=== PATIENT | male | born 1960 | race Caucasian/White ===

== ENCOUNTER → 2017-10-07 | Outpatient (CLI) | payer OTHER ==
[~2017-10-07] MED LIST: ASPI325 PO; ATOR80 PO; METF500 PO; METO25 PO; NICO21TP TOP; NITR.4SL SL; Prinivil5 MG PO
[2017-10-07 16:02] LABS: BASOPHILS ABSOLUTE AUTO 0.04 K/mm3 (0.00-0.23); BASOPHILS PERCENT AUTO 0 % (0-2); EOSINOPHILS ABSOLUTE AUTO 0.14 K/mm3 (0.00-0.68); EOSINOPHILS PERCENT AUTO 1 % (0-6); Hematocrit 42.9 % (37.0-53.0); Hemoglobin 15.6 g/dL (13.5-17.5); IMMATURE GRAN ABSOLUTE AUTO 0.03 K/mm3 (0.00-0.10); IMMATURE GRAN PERCENT AUTO 0 % (0-1); LYMPHOCYTES ABSOLUTE AUTO 1.42 K/mm3 (0.84-5.20); LYMPHOCYTES PERCENT AUTO 13 % (21-46); MONOCYTES ABSOLUTE AUTO 0.56 K/mm3 (0.16-1.47); MONOCYTES PERCENT AUTO 5 % (4-13); Mean Corpuscular HGB 33.4 pg (26.0-34.0); Mean Corpuscular HGB Conc 36.4 g/dL (31.5-36.5); Mean Corpuscular Volume 92 fL (80-100); Mean Platelet Volume 10.8 fL (9.1-12.4); NEUTROPHILS ABSOLUTE AUTO 8.74 K/mm3 (1.96-9.15); NEUTROPHILS PERCENT AUTO 80 % (41-73); Platelet Count 246 K/mm3 (150-400); RDW Coefficient Variation 11.8 % (11.7-14.2); RDW Standard Deviation 39.5 fL (35.1-46.3); Red Blood Cell Count 4.67 M/mm3 (4.30-5.90); White Blood Cell Count 10.93 K/mm3 (4.00-11.30)
[2017-10-07 16:24] LABS: Alanine Aminotransfer (ALT/SGP 27 U/L (12-78); Albumin, Blood 4.1 g/dL (3.4-5.0); Albumin/Globulin Ratio 1.1 (0.8-1.8); Alk Phos 120 U/L (50-136); Anion Gap 9 mmol/L (6-16); Aspartate Aminotrans (AST/SGOT 14 U/L (12-37); Bilirubin, Total 0.5 mg/dL (0.1-1.0); Blood Urea Nitrogen 14 mg/dL (8-24); Bun/Creatinine Ratio 23.9 (12.0-20.0); CHOL/HDL RATIO 5.7; CO2, Blood 24 mmol/L (21-32); Calcium, Blood 8.8 mg/dL (8.5-10.1); Chloride, Blood 100 mmol/L (98-108); Cholesterol 266 mg/dL (50-200); Creatinine, Blood 0.59 mg/dL (0.60-1.20); Globulin, Blood 3.9 g/dL (2.2-4.0); Glomerular Filtration Rate >60 (60-); Glucose, Blood 289 mg/dL (70-99); HDL Cholesterol 47 mg/dL (>39); LDL/HDL RATIO 3.6; Low Density Lipoprotein Chol 169 mg/dL (0-110); Potassium, Blood 3.9 mmol/L (3.5-5.5); Sodium, Blood 133 mmol/L (136-145); Triglycerides 249 mg/dL (30-160); Very Low Density Lipoprot Chol 49 mg/dL (6-32)
== END ==
LOC: LAB SHORT 15:51 → LAB 15:51
PROVIDERS: Physician Assistant
DX: Z12.5 Encounter for screening for malignant neoplasm of prostate (principal); E11.9 Type 2 diabetes mellitus without complications
CPT/HCPCS: 80053; 80061; 83036; 85025; G0103

== ENCOUNTER → 2020-04-16 | Outpatient (CLI) | payer BC ==
[2020-04-16 15:41] LABS: Alanine Aminotransfer (ALT/SGP 27 U/L (12-78); Albumin, Blood 4.1 g/dL (3.4-5.0); Albumin/Globulin Ratio 1.2 (0.8-1.8); Alk Phos 78 U/L (50-136); Anion Gap 7 mmol/L (6-16); Aspartate Aminotrans (AST/SGOT 20 U/L (12-37); Bilirubin, Total 0.4 mg/dL (0.1-1.0); Blood Urea Nitrogen 11 mg/dL (8-24); Bun/Creatinine Ratio 12.4 (12.0-20.0); CO2, Blood 27 mmol/L (21-32); Calcium, Blood 9.5 mg/dL (8.5-10.1); Chloride, Blood 99 mmol/L (98-108); Creatinine, Blood 0.89 mg/dL (0.60-1.20); Globulin, Blood 3.5 g/dL (2.2-4.0); Glomerular Filtration Rate >60 (60-); Glucose, Blood 154 mg/dL (70-99); Potassium, Blood 3.9 mmol/L (3.5-5.5); Sodium, Blood 133 mmol/L (136-145); Total Protein, Blood 7.6 g/dL (6.4-8.2)
== END ==
LOC: LAB SHORT 13:25 → LAB FUT 03-31 10:55
PROVIDERS: Nurse Practitioner Family
DX: E11.9 Type 2 diabetes mellitus without complications (principal)
CPT/HCPCS: 36415; 80053; 82043

== ENCOUNTER 2023-05-27 13:11 | Observation (INO) | payer OTHER ==
[~2023-05-27] VITALS: Ht 172.7 cm; Wt 64.5 kg
[2023-05-27 13:43] LABS: BASOPHILS ABSOLUTE AUTO 0.06 K/mm3 (0.00-0.23); BASOPHILS PERCENT AUTO 1 % (0-2); EOSINOPHILS ABSOLUTE AUTO 0.19 K/mm3 (0.00-0.68); EOSINOPHILS PERCENT AUTO 2 % (0-6); Hematocrit 44.1 % (37.0-53.0); Hemoglobin 15.7 g/dL (13.5-17.5); IMMATURE GRAN ABSOLUTE AUTO 0.05 K/mm3 (0.00-0.10); IMMATURE GRAN PERCENT AUTO 0 % (0-1); LYMPHOCYTES ABSOLUTE AUTO 2.46 K/mm3 (0.84-5.20); LYMPHOCYTES PERCENT AUTO 21 % (21-46); MONOCYTES ABSOLUTE AUTO 0.78 K/mm3 (0.16-1.47); MONOCYTES PERCENT AUTO 7 % (4-13); Mean Corpuscular HGB 33.3 pg (26.0-34.0); Mean Corpuscular HGB Conc 35.6 g/dL (31.5-36.5); Mean Corpuscular Volume 93 fL (80-100); NEUTROPHILS ABSOLUTE AUTO 8.37 K/mm3 (1.96-9.15); NEUTROPHILS PERCENT AUTO 70 % (41-73); Platelet Count 268 K/mm3 (150-400); RDW Coefficient Variation 11.6 % (11.7-14.2); RDW Standard Deviation 39.5 fL (35.1-46.3); Red Blood Cell Count 4.72 M/mm3 (4.30-5.90); White Blood Cell Count 11.91 K/mm3 (4.00-11.30)
[2023-05-27 14:02] LABS: Albumin, Blood 4.4 g/dL (3.4-5.0); Albumin/Globulin Ratio 1.1 (0.8-1.8); Bilirubin, Total 0.4 mg/dL (0.1-1.0); Bun/Creatinine Ratio 19.6 (12.0-20.0); Calcium, Blood 9.7 mg/dL (8.5-10.1); Creatinine, Blood 0.66 mg/dL (0.60-1.20); Potassium, Blood 3.8 mmol/L (3.5-5.5); Total Protein, Blood 8.4 g/dL (6.4-8.2)
[2023-05-27 15:25] LABS: Ethanol (Alcohol), Blood, Med <3 mg/dL
[2023-05-27] MEDS ORDERED: CYCL10 PO (18:49)
[2023-05-27] MEDS ORDERED: Prednisone10 MG PO (18:50)
[2023-05-27 20:38] VITALS: BP 153/91
--- NOTE | 2023-05-27 22:09 | NUR ---
ADMIT NOTE 62 YR OLD MALE ADMITTED TO THE FLOOR FROM THE ED WITH DX OF CVA. ED RN REPORTED PT C/O RIGHT SIDE NUMBNESS AND TINGLING. NO NOTED FACIAL DROOP. MRI DONE AND ED RN REPORTED LEFT CVA - "LEFT THALMUS INFARCT". ALERT AND ORIENTED. HX DM, CABG AND CAD. BP ELEVATED, OTHERWISE VSS. MED FOR HTN ADMIN - SEE MAR FOR DETAILS. ORIENTED TO USE OF CALL LIGHT. CALL LIGHT IN REACH. WILL CONT TO MONITOR/ASSESS
[2023-05-28 04:23] VITALS: BP 119/81
--- NOTE | 2023-05-28 05:04 | NUR ---
[employer] COMPUTER CONSULTANT SUMMARY VSS. WAS ADMITTED EARLIER IN THE SHIFT WITH DX OF CVA. RIGHT SIDE NUMBNESS, TINGLING AND PUPILS ROUND BUT NOT EQUAL. VERBAL RESPONSE APPROPRIATE. NO NOTED FACIAL DROOP. 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 MED TELE SINUS. VOICED HAD PAIN IN LEFT CALF, RECEIVED TYLENOL AND PAIN WAS RELIEVED. HAS BEEN RESTING QUIETLY WITH AT BEDSIDE FOR SUPPORT. VOICED LOSS OF FEELING OF RIGHT SIDE GETTING BETTER, FEELING STARTING TO RETURN. CALL LIGHT IN REACH. WILL CONTINUE TO MONITOR
[2023-05-28 05:58] LABS: CHOL/HDL RATIO 5.9; Cholesterol 246 mg/dL (50-200); HDL Cholesterol 42 mg/dL (>39); LDL/HDL RATIO Unable to Calculate; Low Density Lipoprotein Chol Unable to Calculate mg/dL (0-110); Triglycerides 445 mg/dL (30-160); Very Low Density Lipoprot Chol Unable to Calculate mg/dL (6-32)
[2023-05-28 07:19] VITALS: BP 112/75
[2023-05-28] MEDS ORDERED: ACET325 PO (16:03)
[2023-05-28] MEDS ORDERED: ATOR40TA PO (16:03)
[2023-05-28] MEDS ORDERED: ASPI81CH PO (16:03)
[2023-05-28] MEDS ORDERED: METF500 PO (16:04)
[2023-05-28] MEDS ORDERED: CLOP75 PO (16:04)
[2023-05-28] MEDS ORDERED: LOSA25 PO (16:04)
--- NOTE | 2023-05-28 16:25 | NUR ---
DISCHARGE SUMMARY PATIENT IS ALERT AND ORIENTED. PATIENT HAS HAD NO ACUTE EVENTS THIS SHIFT. PATIENT HAS BEEN EDUCATED ON DISCHARGE INFORMATION. [facility] IS TRANSPORTING PATIENT HOME.
[2023-05-30 21:11] LABS: HEMOGLOBIN A1C 8.3 % (4.8-5.6)
== END 2023-05-28 17:19 | disposition home or self-care (01) ==
LOC: ER 13:11 → MEDS 13:12
PROVIDERS: Emergency Medicine; ADMIT Hospitalist
DX: I63.9 Cerebral infarction, unspecified (principal); G81.91 Hemiplegia, unspecified affecting right dominant side; I10 Essential (primary) hypertension; E11.65 Type 2 diabetes mellitus with hyperglycemia; I25.10 Atherosclerotic heart disease of native coronary artery without angina pectoris; F17.210 Nicotine dependence, cigarettes, uncomplicated; Z95.1 Presence of aortocoronary bypass graft; Z66 Do not resuscitate; Z79.84 Long term (current) use of oral hypoglycemic drugs
CPT/HCPCS: 36415; 70450; 70551; 80053; 80061; 82947; 83036; 83735; 85025; 93005; 93010; 93306; 93880; 96372; 97112; 97116; 97162; 97530; 99285-25; A9270; G0378; J1650; J1815

== ENCOUNTER 2023-07-07 17:38 | Emergency (ER) | payer OTHER ==
[~2023-07-07] VITALS: Ht 167.6 cm; Wt 65.8 kg
[~2023-07-07 17:38] MED LIST changes: +ACET325 PO; +ASPI81CH PO; +ATOR40TA PO; +CLOP75 PO; +CYCL10 PO; +LOSA25 PO; +Prednisone10 MG PO
[2023-07-07 18:15] LABS: BASOPHILS ABSOLUTE AUTO 0.05 K/mm3 (0.00-0.23); BASOPHILS PERCENT AUTO 1 % (0-2); EOSINOPHILS ABSOLUTE AUTO 0.25 K/mm3 (0.00-0.68); EOSINOPHILS PERCENT AUTO 3 % (0-6); Hematocrit 42.1 % (37.0-53.0); Hemoglobin 15.1 g/dL (13.5-17.5); IMMATURE GRAN ABSOLUTE AUTO 0.02 K/mm3 (0.00-0.10); IMMATURE GRAN PERCENT AUTO 0 % (0-1); LYMPHOCYTES ABSOLUTE AUTO 1.78 K/mm3 (0.84-5.20); LYMPHOCYTES PERCENT AUTO 19 % (21-46); MONOCYTES ABSOLUTE AUTO 0.81 K/mm3 (0.16-1.47); MONOCYTES PERCENT AUTO 9 % (4-13); Mean Corpuscular HGB Conc 35.9 g/dL (31.5-36.5); Mean Corpuscular Volume 92 fL (80-100); Mean Platelet Volume 10.1 fL (9.1-12.4); NEUTROPHILS ABSOLUTE AUTO 6.51 K/mm3 (1.96-9.15); NEUTROPHILS PERCENT AUTO 69 % (41-73); Platelet Count 292 K/mm3 (150-400); RDW Coefficient Variation 11.9 % (11.7-14.2); RDW Standard Deviation 40.5 fL (35.1-46.3); Red Blood Cell Count 4.57 M/mm3 (4.30-5.90); White Blood Cell Count 9.42 K/mm3 (4.00-11.30)
[2023-07-07 18:46] LABS: C-REACTIVE PROTEIN, EXT RANGE 1.3 mg/dL (0.000-0.300)
[2023-07-07 18:49] LABS: Albumin, Blood 4.1 g/dL (3.4-5.0); Bilirubin, Total 0.3 mg/dL (0.1-1.0); Bun/Creatinine Ratio 21.8 (12.0-20.0); Creatinine, Blood 0.69 mg/dL (0.60-1.20); Globulin, Blood 4.1 g/dL (2.2-4.0); Potassium, Blood 4.5 mmol/L (3.5-5.5); Total Protein, Blood 8.2 g/dL (6.4-8.2)
[2023-07-07 20:52] VITALS: BP 146/96
== END 2023-07-07 20:55 | disposition home or self-care (01) ==
LOC: ER 17:38
PROVIDERS: Emergency Medicine
DX: E11.51 Type 2 diabetes mellitus with diabetic peripheral angiopathy without gangrene (principal); F17.200 Nicotine dependence, unspecified, uncomplicated; I10 Essential (primary) hypertension; E78.5 Hyperlipidemia, unspecified; Z79.899 Other long term (current) drug therapy; Z79.02 Long term (current) use of antithrombotics/antiplatelets; Z79.82 Long term (current) use of aspirin; Z79.84 Long term (current) use of oral hypoglycemic drugs
CPT/HCPCS: 80053; 85025; 86140; 93926; 99283-25

== ENCOUNTER 2023-07-24 08:56 | Day surgery (SDC) | payer OTHER ==
[2023-07-24] VITALS (9 sets, daily range): BP systolic 127–150; BP diastolic 79–88
[~2023-07-24] VITALS: Ht 172.7 cm; Wt 64.4 kg
[~2023-07-24 08:56] MED LIST changes: +GLIP5 PO; +Norco 5-325 Ta1 EACH
--- NOTE | 2023-07-24 09:27 | NUR ---
PT'S IN ROOM. CALL LIGHT IN REACH.
--- NOTE | 2023-07-24 14:43 | NUR ---
LEFT DP AND R FEMORAL GROIN SITES SOFT WITH NO HEMATOMA, NO BLEEDING AND INTACT DRESSINGS. FULL PROCEDURE REPORT PROVIDED ORAL COFFEY TO ASSUME CARE OF PT IN RECOVERY ROOM. CALL LIGHT IN REACH.
--- NOTE | 2023-07-24 15:00 | NUR ---
ASSUMED CARE OF PT AT THIS TIME. VSS REMAIN STABLE, PT ALERT AND ORIENTED, PT SPOUSE AT BEDSIDE. PT. RIGHT GROIN SITE REMAINS UNCHANGED FROM PREVIOUS NURSES ASSESSMENT, NO OOZING, NO HEMATOMA. PT LEFT PEDAL SITE REMAINS UNCHANGED WELL NO OOZING OR HEMATOMA. PT LEFT FOOT WARM TO TOUCH AND RED IN COLOR. PT REMAINS LAYING SUPINE IN BED. CALL LIGHT IN REACH.
--- NOTE | 2023-07-24 15:38 | NUR ---
PT ASSISTED TO SIT UP IN BED, BOTH FEMORAL AND PEDAL SITE REMAINS UNCHANGED FROM PREVIOUS ASSESSMENT. PT. ASSISTED TO DANGLE AT BEDSIDE AND STAND TO VOID. PT VOIDED 300CC OF URINE. REPORTS TENDERNESS TO BOTTOM OF FOOT. PT ASSISTED BACK INTO BED, AND GROIN SITE AND PEDAL SITE ASSESSED AND REMAIN UNCHANGED AFTER ACTIVITY.
--- NOTE | 2023-07-24 16:11 | NUR ---
DISCHARGE INSTRUCTIONS REVIEWED WITH PT. PT REQUESTING PAIN MEDICATION PRIOR TO DEPARTURE FOR PAIN TO FOOT OF 01/01. NORCO ORDERED PER DR. LIPSCOMB. PT. ALSO TO BE STARTED ON [place]. CALLED INTO [facility] PER PT. REQUEST. NO FUTHER QUESTIONS TO DISCHARGE INSTRUCTIONS AT THIS TIME. PT ASSSITING PT TO GET DRESSED. GROIN AND PEDAL SITE REMAIN UNCHANGED. VSS
[2023-07-24] MEDS ORDERED: CLOP75 PO (16:13)
--- NOTE | 2023-07-24 16:34 | NUR ---
PT DISCHARGED TO HOME VIA WHEELCHAIR. PT TO DRIVE PT HOME. NO FURTHER QUESTIONS REGARDING DISCHARGE UPON DEPARTURE, SITES REMAIN WNL, UNCHANGED FROM PREVIOUS ASSESSMENT PRIOR TO DEPARTURE.
== END 2023-07-24 16:30 | disposition home or self-care (01) ==
LOC: MHTC 08:56
DX: I70.223 Atherosclerosis of native arteries of extremities with rest pain, bilateral legs (principal); E11.9 Type 2 diabetes mellitus without complications; E78.5 Hyperlipidemia, unspecified; I10 Essential (primary) hypertension; Z95.1 Presence of aortocoronary bypass graft; F17.210 Nicotine dependence, cigarettes, uncomplicated
CPT/HCPCS: 76937; 82947; 85347; 99152; 99153; A9270; C1714; C1725; C1760; C1769; C1874; C1884; C1887; C1894; C2623; J1644; J2250; J3010; J7030; J7050; Q9967

== ENCOUNTER 2023-08-12 17:52 | Emergency (ER) | payer OTHER ==
[~2023-08-12] VITALS: Ht 175.3 cm; Wt 63.5 kg
[~2023-08-12 17:52] MED LIST changes: +DOCU100 PO
[2023-08-12 19:08] LABS: BASOPHILS ABSOLUTE AUTO 0.07 K/mm3 (0.00-0.23); BASOPHILS PERCENT AUTO 1 % (0-2); EOSINOPHILS ABSOLUTE AUTO 0.43 K/mm3 (0.00-0.68); EOSINOPHILS PERCENT AUTO 3 % (0-6); Hematocrit 35.4 % (37.0-53.0); Hemoglobin 12.5 g/dL (13.5-17.5); IMMATURE GRAN ABSOLUTE AUTO 0.04 K/mm3 (0.00-0.10); IMMATURE GRAN PERCENT AUTO 0 % (0-1); LYMPHOCYTES ABSOLUTE AUTO 1.52 K/mm3 (0.84-5.20); LYMPHOCYTES PERCENT AUTO 12 % (21-46); MONOCYTES ABSOLUTE AUTO 1.17 K/mm3 (0.16-1.47); MONOCYTES PERCENT AUTO 9 % (4-13); Mean Corpuscular HGB 33.4 pg (26.0-34.0); Mean Corpuscular HGB Conc 35.3 g/dL (31.5-36.5); Mean Corpuscular Volume 95 fL (80-100); Mean Platelet Volume 9.9 fL (9.1-12.4); NEUTROPHILS ABSOLUTE AUTO 9.96 K/mm3 (1.96-9.15); NEUTROPHILS PERCENT AUTO 76 % (41-73); Platelet Count 336 K/mm3 (150-400); Red Blood Cell Count 3.74 M/mm3 (4.30-5.90); White Blood Cell Count 13.19 K/mm3 (4.00-11.30)
[2023-08-12 19:16] LABS: Albumin, Blood 3.8 g/dL (3.4-5.0); Albumin/Globulin Ratio 0.9 (0.8-1.8); Bilirubin, Total 0.5 mg/dL (0.1-1.0); Bun/Creatinine Ratio 22.3 (12.0-20.0); Calcium, Blood 9.4 mg/dL (8.5-10.1); Creatinine, Blood 0.63 mg/dL (0.60-1.20); Globulin, Blood 4.4 g/dL (2.2-4.0); Potassium, Blood 4.4 mmol/L (3.5-5.5); Total Protein, Blood 8.2 g/dL (6.4-8.2)
[2023-08-12] MEDS ORDERED: NS 1,000 ML IV SCH (19:50)
[2023-08-12 22:00] VITALS: BP 164/93
== END 2023-08-12 22:27 | disposition home or self-care (01) ==
LOC: ER 17:52
PROVIDERS: Physician Assistant
DX: I95.1 Orthostatic hypotension (principal); F17.200 Nicotine dependence, unspecified, uncomplicated; D72.829 Elevated white blood cell count, unspecified; Z79.82 Long term (current) use of aspirin; Z79.899 Other long term (current) drug therapy; Z79.84 Long term (current) use of oral hypoglycemic drugs; Z79.02 Long term (current) use of antithrombotics/antiplatelets
CPT/HCPCS: 80053; 83880; 84484; 85025; 93005; 93010; 96360; 96361; 99285-25; J7030

== ENCOUNTER → 2023-10-18 | Outpatient (CLI) | payer OTHER | END | disposition home or self-care (01) | LOC: LAB 11:30 → LAB SHORT 11:30 | DX: Z51.81 Encounter for therapeutic drug level monitoring (principal); Z79.899 Other long term (current) drug therapy ==

== ENCOUNTER 2023-12-03 21:52 | Observation (INO) | payer OTHER ==
[~2023-12-03] VITALS: Ht 170.2 cm; Wt 65.3 kg
[~2023-12-03 21:52] MED LIST changes: +Avapro300 MG PO; +GABA100 PO; +GLIM4 PO; +HYDCHL25 PO; +HYDROCODONE-AC1 EA19 PO; -LOSA25 PO; +LOSA50 PO; +METO25ER PO; +NEURONTIN300 MG PO; -Norco 5-325 Ta1 EACH; +Norco 5-325 Ta1 EACH PO; +OMEP20ER PO; +OXYC5 PO; +PANT40 PO; +VENL75ER PO; +XARELTO20 M1 PO
[2023-12-03 23:11] LABS: Source, Urine Clean Catch
[2023-12-03 23:15] LABS: BASOPHILS ABSOLUTE AUTO 0.05 K/mm3 (0.00-0.23); BASOPHILS PERCENT AUTO 1 % (0-2); EOSINOPHILS ABSOLUTE AUTO 0.33 K/mm3 (0.00-0.68); EOSINOPHILS PERCENT AUTO 5 % (0-6); Hematocrit 38.8 % (37.0-53.0); Hemoglobin 13.8 g/dL (13.5-17.5); IMMATURE GRAN ABSOLUTE AUTO 0.02 K/mm3 (0.00-0.10); IMMATURE GRAN PERCENT AUTO 0 % (0-1); LYMPHOCYTES ABSOLUTE AUTO 2.49 K/mm3 (0.84-5.20); LYMPHOCYTES PERCENT AUTO 37 % (21-46); MONOCYTES PERCENT AUTO 10 % (4-13); Mean Corpuscular HGB 32.7 pg (26.0-34.0); Mean Corpuscular HGB Conc 35.6 g/dL (31.5-36.5); Mean Corpuscular Volume 92 fL (80-100); Mean Platelet Volume 10.1 fL (9.1-12.4); NEUTROPHILS ABSOLUTE AUTO 3.18 K/mm3 (1.96-9.15); NEUTROPHILS PERCENT AUTO 47 % (41-73); Platelet Count 296 K/mm3 (150-400); RDW Coefficient Variation 11.9 % (11.7-14.2); Red Blood Cell Count 4.22 M/mm3 (4.30-5.90); White Blood Cell Count 6.77 K/mm3 (4.00-11.30)
[2023-12-03 23:17] LABS: Bilirubin, Urine Neg (Neg); Blood, Urine 1+ (Neg); Glucose Qualitative, Urine 1+ (Neg); Ketones, Urine Neg (Neg); Leukocyte Esterase, Urine Neg (Neg); Nitrite, Urine Neg (Neg); Protein, Urine Neg (Neg); Urobilinogen, Urine NORM (Normal)
[2023-12-03 23:34] LABS: Ethanol (Alcohol), Blood, Med 132 mg/dL; Salicylate 4.5 mg/dL (2.8-20.0); Thyroxine (T4) 10.3 ug/dL (4.5-12.1)
[2023-12-03 23:40] LABS: U Amphetamine Screen Not Detected; U Barbituate Screen Not Detected; U Benzodiazapine Screen Not Detected; U Buprenorphine Screen Not Detected; U Cannabinoids Screen Not Detected; U Cocaine Screen Not Detected; U Methadone Screen Not Detected; U Methamphetamine Screen Not Detected; U Opiates Screen Not Detected; U Oxycodone Screen Not Detected; U Phencyclidine Screen Not Detected
[2023-12-03 23:41] LABS: Alanine Aminotransfer (ALT/SGP 29 U/L (12-78); Albumin, Blood 4.4 g/dL (3.4-5.0); Alk Phos 105 U/L (50-136); Anion Gap 11 mmol/L (3-11); Aspartate Aminotrans (AST/SGOT 17 U/L (12-37); Bilirubin, Total 0.2 mg/dL (0.1-1.0); Blood Urea Nitrogen 6 mg/dL (8-24); Bun/Creatinine Ratio 9.6 (12.0-20.0); CO2, Blood 24 mmol/L (21-32); Calcium, Blood 9.7 mg/dL (8.5-10.1); Chloride, Blood 107 mmol/L (98-108); Creatinine, Blood 0.62 mg/dL (0.60-1.20); Globulin, Blood 4.2 g/dL (2.2-4.0); Glomerular Filtration Rate 108 (60-); Glucose, Blood 97 mg/dL (70-99); Potassium, Blood 3.2 mmol/L (3.5-5.5); Sodium, Blood 139 mmol/L (136-145); Total Protein, Blood 8.6 g/dL (6.4-8.2)
[2023-12-03 23:41] LABS: Appearance, Urine Clear (Clear); Color, Urine Pale Yellow (P-Yellow)
[2023-12-03 23:42] LABS: Bacteria Not Seen /hpf; Red Blood Cells, Urine 0-2 /hpf (0-2); Squamous Epithelial Cells Not Seen /hpf (Few); White Blood Cells, Urine Not Seen /hpf (0-5)
[2023-12-03 23:47] LABS: Acetaminophen, Random <2.0 ug/mL (10.0-30.0)
[2023-12-04] MEDS ORDERED: HYDROcodone 5-APAP 325 TAB PO ONE (00:45)
[2023-12-04 19:30] VITALS: BP 147/78
[2023-12-05] MEDS ORDERED: buPROPion HCL 150 MG TAB.SR.12H PO SCH (09:00)
== END 2023-12-04 20:48 | disposition other institution (70) ==
LOC: ER 21:52 → EOR 21:53
PROVIDERS: ADMIT Emergency Medicine
DX: F32.2 Major depressive disorder, single episode, severe without psychotic features (principal); F10.129 Alcohol abuse with intoxication, unspecified; E11.51 Type 2 diabetes mellitus with diabetic peripheral angiopathy without gangrene; F17.200 Nicotine dependence, unspecified, uncomplicated; Z95.1 Presence of aortocoronary bypass graft; Z79.84 Long term (current) use of oral hypoglycemic drugs; Z79.82 Long term (current) use of aspirin; Z79.01 Long term (current) use of anticoagulants; Z79.899 Other long term (current) drug therapy
CPT/HCPCS: 80053; 81001; 84436; 84443; 85025; 86592; 99285-25; A9270; G0378; G0480

== ENCOUNTER 2023-12-04 15:46 | Inpatient (IN) | payer OTHER ==
[2023-12-04] MEDS ORDERED: Haloperidol 5 MG Tab PO PRN ×3 (20:40→20:45)
[2023-12-04] MEDS ORDERED: TraZODone HCl 50 MG Tab PO PRN (20:40)
[2023-12-04] MEDS ORDERED: Haloperidol 1 MG Tab PO PRN (20:45)
[2023-12-04] MEDS ORDERED: LORazepam 2 MG Tab PO PRN ×5 (20:45→20:55)
[2023-12-04] MEDS ORDERED: OLANZapine ODT 10 MG Tab MM PRN (20:50)
[2023-12-04] MEDS ORDERED: QUEtiapine Fumarate 25 MG Tab PO PRN ×2 (20:50→20:55)
[2023-12-04] MEDS ORDERED: OLANZapine ODT 5 MG Tab MM PRN (20:50)
[2023-12-04] MEDS ORDERED: Melatonin 3 MG Tab PO PRN (20:50)
[2023-12-04] MEDS ORDERED: LORazepam 0.5 MG Tab PO PRN ×2 (20:50)
[2023-12-04] MEDS ORDERED: DiphenhydrAMINE HCl 50 MG Cap PO PRN ×3 (20:55)
[2023-12-04] MEDS ORDERED: OLANZapine 10 MG Vial IM PRN (20:55)
[2023-12-04] MEDS ORDERED: RisperiDONE 0.25 MG Tab PO PRN (20:55)
[2023-12-04] MEDS ORDERED: Gabapentin 300 MG Cap PO SCH (21:00)
[2023-12-04] MEDS ORDERED: RisperiDONE 1 MG Tab PO PRN (21:00)
[2023-12-04] MEDS ORDERED: Losartan Potassium 50 MG Tab PO SCH (21:00)
[2023-12-04] MEDS ORDERED: Aluminum Hydroxide 320MG/5ML 473 ML PO PRN (21:00)
--- NOTE | 2023-12-05 05:07 | NUR ---
SHIFT SUMMARY Patient is 63YO male brought to the ED by PD for SI, admitted to the [facility] at about 2100. Pt presents as depressed and sad with a flattened affect. He is A&O, calm, cooperative. At the time of admission patient denied SI, HI, and AVH. Pt rates his depression as 2/10W, but appears to be more depressed that his report. He is somewhat disheveled in appearance. Pt reports suffering from anhedonia. He has lost about 21 lbs in the cast 2-3 months and shows temporal wasting. Pt endorsed SI while in the ER, but currently denies. Pt has encountered several stressors over the last year including the of his son and the necessity to move into a trailer in a rented space. He is currently unemployed but his works. He denies financial and food insecurity. Patient reports current lower leg pain 8/10w. He tends to walk gingerly and painfully. After admission patient was shown to his room. He has appeared to have slept most of the time since admission.
[2023-12-05] MEDS ORDERED: GlipiZIDE 5 MG TabCR PO SCH (08:00)
[2023-12-05] MEDS ORDERED: MetFORMIN HCl 500 mg PO SCH (08:00)
[2023-12-05] MEDS ORDERED: Thiamine HCl 100 MG Tab PO SCH (09:00)
[2023-12-05] MEDS ORDERED: buPROPion HCL 150 MG TAB.SR.12H PO SCH (09:00)
[2023-12-05] MEDS ORDERED: Multivitamins 1 Tab PO SCH (09:00)
[2023-12-05] MEDS ORDERED: HydroCHLOROthiazide 25 mg Tab PO SCH (09:00)
[2023-12-05] MEDS ORDERED: Clopidogrel Bisulfate 75 MG Tab PO SCH (09:00)
[2023-12-05] MEDS ORDERED: Metoprolol Succinate 25 MG TABCR PO SCH (09:00)
[2023-12-05] MEDS ORDERED: Docusate Sodium 100 MG Cap PO SCH (09:00)
[2023-12-05] MEDS ORDERED: Aspirin 81 MG Chew PO SCH (09:00)
[2023-12-05] MEDS ORDERED: Folic Acid 1 MG TAB PO SCH (09:00)
[2023-12-05] MEDS ORDERED: Atorvastatin 40 MG Tab PO SCH (09:00)
[2023-12-05 09:12] VITALS: BP 117/84
[2023-12-05] MEDS ORDERED: ChlordiazePOXIDE 25 MG Cap PO PRN (15:35)
[2023-12-05] MEDS ORDERED: LORazepam 1 MG Tab PO PRN (15:35)
[2023-12-05] MEDS ORDERED: LORazepam 2 MG/ML 1ML Injection IM PRN (15:35)
--- NOTE | 2023-12-05 15:49 | NUR ---
PT ATE LUNCH AND THEN HAD A VISIT WITH SPOUSE, VISIT SEEMED CORDIAL AND THERAPEUTIC. PT REPORTS HE IS FEELING BETTER THAN WHEN HE ARRIVED IN THE ED, PT SPOUSE STATES IT IS NICE TO SEE PT SMILE. DISCUSSED MEDICATIONS WITH BOTH SPOUSE AND PT. PT STATES PAIN IN FEET IS WORSENING THE DAY GOES ON. SPOUSE DISCUSSED THE LOSS OF PT ONLY SON WELL PCP'S RECCOMENDATION TO FIND [facility]RONIC PAIN MANAGEMENT SUPPORT GROUP. FOLLOWING THE VISIT, DR. GAONA CAME AND EXAMINED PT, PLANS TO ADD HYDROCODONE AND STOP THE GLIPIZIDE, THOUGH NO CHANGES TO ANY ANTICOAGULATION MEDICATIONS, PT AND SO DID REPORT HE HAS FOLLOW UP WITH THE VASCULAR SURGEON IN A FEW MONTHS, HE STATES UNDERSTANDING TO AVOID INJURIES THAT COULD CAUSE BLEEDING, OR AVOID HIGH RISK ACTIVITIES.
[2023-12-05] MEDS ORDERED: HYDROcodone 5-APAP 325 TAB PO PRN (17:05)
[2023-12-05 20:34] VITALS: BP 130/69
[2023-12-05] MEDS ORDERED: Mirtazapine 15 MG Tab PO SCH (21:00)
[2023-12-06 07:58] VITALS: BP 141/69
--- NOTE | 2023-12-06 08:50 | NUR ---
On 12/05/2023 SARAHY provided pt with resources for indivdidual therapy, recreational activities and grief counseling services.
[2023-12-06] MEDS ORDERED: Clopidogrel Bisulfate 75 MG Tab PO SCH (09:00)
[2023-12-06] MEDS ORDERED: Rivaroxaban 10 MG Tab PO SCH (09:00)
[2023-12-06 10:06] VITALS: BP 111/71
--- NOTE | 2023-12-06 16:24 | NUR ---
PT WEIGHED TODAY, ACTUAL WEIGHT IS 142 LBS
[2023-12-06 20:22] VITALS: BP 139/82
[2023-12-06] MEDS ORDERED: QUEtiapine Fumarate 100 MG Tab PO SCH (21:00)
--- NOTE | 2023-12-07 01:43 | NUR ---
Pt calm, cooperative, medication compliant, meds well tolerated, Pt denies SI, HI, A/V Hallucination. No issues at this time.
--- NOTE | 2023-12-07 01:54 | NUR ---
Pt calm, cooperative, medication compliant, medications well tolerated. Pt denies SI, HI. A/V Hallucinations. No issues at this time.
--- NOTE | 2023-12-07 01:59 | NUR ---
Pt calm, cooperative, medication compliant, medications well tolerated, Pt denies SI, HI, A/V Hallucinations, no issues at this time.
--- NOTE | 2023-12-07 07:18 | NUR ---
Pt calm, cooperative, medication compliant, Pt denies SI, HI, A/V Hallucinations, No issues at this time.
[2023-12-07 08:20] VITALS: BP 112/85
--- NOTE | 2023-12-07 17:27 | NUR ---
SHIFT SUMMARY PT AxOx4. PLEASANT AND COOPERATIVE WITH CARE. PT REPORTS FEELING "GOOD" TODAY AFTER STATING HE WAS "GRUMPY" THIS MORNING WHICH WAS R/T FOOT PAIN. PT HAD PROVIDER CONSULT WITH HOSPITALIST THIS SHIFT TO RULE OUT INFECTION IN L FOOT POST TOE AMPUATION SITE. PROVIDER SPOKE WITH THIS RN AFTER CONSULT TO CONFIRM NO SIGNS OF INFECTION AND TO PLACE WOUND CARE ORDERS. WOUND CARE PROVIDED AND DRESSING CHANGED ON L FOOT. PT REPORTS PAIN IN FOOT T/O THIS SHIFT BETWEEN 8-04/03. PT REPORTS MILD RELIEF AFTER PAIN MEDS ADMINISTERED. PT PARTICIPATED IN GROUPS TODAY, REPORTS GOOD APPETITE, AND HAS INTERACTED WITH PEERS APPROPRIATELY. HE IS CURRENLTY STANDING IN [place] WITH RELAXED POSTURE. DENIES ANY NEEDS AT THIS TIME.
[2023-12-07 20:07] VITALS: BP 154/78
[2023-12-08] MEDS ORDERED: BUPR150ER PO (09:48)
[2023-12-08] MEDS ORDERED: MIRT15 PO (09:48)
== END 2023-12-08 10:43 | disposition home or self-care (01) | DRG 885 ==
LOC: BHU 15:46
PROVIDERS: ADMIT Student in an Organized Health Care Education/Training Program
DX: F33.41 Major depressive disorder, recurrent, in partial remission (principal); I10 Essential (primary) hypertension; E11.42 Type 2 diabetes mellitus with diabetic polyneuropathy; G89.29 Other chronic pain; E78.5 Hyperlipidemia, unspecified; E11.51 Type 2 diabetes mellitus with diabetic peripheral angiopathy without gangrene; Z79.82 Long term (current) use of aspirin; Z79.02 Long term (current) use of antithrombotics/antiplatelets; Z79.84 Long term (current) use of oral hypoglycemic drugs; Z86.73 Personal history of transient ischemic attack (TIA), and cerebral infarction without residual deficits; Z79.899 Other long term (current) drug therapy; Z79.891 Long term (current) use of opiate analgesic
CPT/HCPCS: 93005; 93010; A9270

== ENCOUNTER → 2024-07-05 | Outpatient (CLI) | payer OTHER ==
[~2024-07-05] MED LIST changes: +BUPR150ER PO; +MIRT15 PO
[2024-07-05 18:44] LABS: Creatinine, Urine Random 32.8 mg/dL (27.00-270.00)
[2024-07-05 18:47] LABS: Microalb/Creat Ratio UR, Rand 22.165 mg/g (0.000-30.000); Microalbumin, Random Urine 7.27 mg/L (0.000-20.000)
== END ==
LOC: LAB SHORT 16:07 → LAB 16:07
PROVIDERS: Family Medicine
DX: E11.65 Type 2 diabetes mellitus with hyperglycemia (principal)
CPT/HCPCS: 82043; 82570

== ENCOUNTER 2024-08-22 11:08 | Day surgery (SDC) | payer OTHER ==
[2024-08-22] VITALS (7 sets, daily range): BP systolic 112–139; BP diastolic 67–77
[~2024-08-22] VITALS: Ht 172.7 cm; Wt 64.4 kg
[~2024-08-22 11:08] MED LIST changes: +1/2 NS 250ml250 ML; +CILOSTAZOL50 M1 PO; +GABA300 PO; +LOSA25 PO; -LOSA50 PO; -NEURONTIN300 MG PO
[2024-08-22] MEDS ORDERED: Midazolam HCl 1MG / ML 2ML Vial ONE ×2 (12:54→14:01)
[2024-08-22] MEDS ORDERED: NS 1,000 ML IV ONE ×2 (12:54→12:59)
[2024-08-22] MEDS ORDERED: FentaNYL Citrate 50 MCG/ML 2 ML Injection ONE ×2 (12:54→14:01)
[2024-08-22] MEDS ORDERED: Heparin Sodium 1000 Units/ML 10ML MDV ONE ×2 (12:59→14:42)
[2024-08-22] MEDS ORDERED: NS 250 ML IV ONE (12:59)
[2024-08-22] MEDS ORDERED: Nitroglycerin 2 MG/20 ML BTL ONE (13:00)
[2024-08-22] MEDS ORDERED: NS 100 ML IV ONE (13:38)
--- NOTE | 2024-08-22 15:52 | NUR ---
pt arrives back to recovery room in supine position. pt. alert and oriented, resting comfortably in bed. warm blankets provided. pt. Left PT site wnl at this time no oozing/swelling noted at this time. Pt. Right groin site assessed, soft around access site however small amount of oozing from site. Pressure held to site for approx 15 min, site stable at this time. no hematoma. Pt distal pulses unchanged from initial assessment. Pt called to update on condition/ time for discharge. EDGAR MEZA. Bed rails up, call light in reach.
--- NOTE | 2024-08-22 17:00 | NUR ---
HOB ELEVATED TO 30 DEGREES. SITES ASSESSED FREQUENTLY NO FURTHER OOZING. WATER PROVIDED PT REFUSES FOOD AT THIS TIME.
--- NOTE | 2024-08-22 17:30 | NUR ---
PT AMBULATING TO BATHROOM TO VOID. SITES REMAIN UNCHANGED FROM INITAL ASSESSMENT. PT VSS REMAIN STABLE. PT CALLED TO UPDATE. PT. DISCHARGE INSTRUCTIONS REVIEWED IN DETAIL. PT. VERBALIZED UNDERSTANDING. IV REMOVED AT THIS TIME. DRESSING CHANGED PRIOR TO PT GETTING DRESSED WITH GOKUL AND TEGADERM. NO FURTHER OOZING AT THIS TIME. PT. VSS REMAIN STABLE. PT ABLE TO GET SELF DRESSED W/O DIFFICULTY. PT TO BE TAKEN TO EXIT VIA WHEEL CHAIR. TO DRIVE PT HOME. ALL BELONGINGS GATHERED.
== END 2024-08-22 17:45 | disposition home or self-care (01) ==
LOC: MHTC 11:08
DX: E11.51 Type 2 diabetes mellitus with diabetic peripheral angiopathy without gangrene (principal); I70.223 Atherosclerosis of native arteries of extremities with rest pain, bilateral legs; I65.22 Occlusion and stenosis of left carotid artery; I10 Essential (primary) hypertension; E78.5 Hyperlipidemia, unspecified; I25.10 Atherosclerotic heart disease of native coronary artery without angina pectoris; Z86.73 Personal history of transient ischemic attack (TIA), and cerebral infarction without residual deficits; Z95.1 Presence of aortocoronary bypass graft; Z87.891 Personal history of nicotine dependence; Z79.84 Long term (current) use of oral hypoglycemic drugs; Z79.01 Long term (current) use of anticoagulants; Z79.899 Other long term (current) drug therapy
CPT/HCPCS: 36140; 36247; 37224; 75625; 75716; 75774; 76937; 99152; 99153; C1725; C1760; C1769; C1887; C1894; C9772; J1644; J2250; J3010; J7030; J7050; Q9967

== ENCOUNTER 2024-09-04 06:57 | Day surgery (SDC) | payer OTHER ==
[~2024-09-04] VITALS: Ht 172.7 cm; Wt 64.0 kg
[2024-09-04] MEDS ORDERED: NS 500 ML IV ONE (07:41)
[2024-09-04] MEDS ORDERED: NS 1,000 ML IV ONE ×2 (07:41→08:02)
[2024-09-04] MEDS ORDERED: Heparin Sodium 1000 Units/ML 10ML MDV ONE ×2 (07:41→08:02)
[2024-09-04] MEDS ORDERED: Nitroglycerin 2 MG/20 ML BTL ONE (07:46)
[2024-09-04 08:00] VITALS: BP 129/78
[2024-09-04 08:15] VITALS: BP 128/73
[2024-09-04] MEDS ORDERED: Midazolam HCl 1MG / ML 2ML Vial ONE ×2 (08:30→08:52)
[2024-09-04] MEDS ORDERED: FentaNYL Citrate 50 MCG/ML 2 ML Injection ONE ×2 (08:30→09:14)
[2024-09-04] MEDS ORDERED: Verapamil HCL 2.5 MG/ML 2ML Injection ONE (09:24)
[2024-09-04 10:45] VITALS: BP 124/83
[2024-09-04 11:00] VITALS: BP 137/80
--- NOTE | 2024-09-04 11:06 | NUR ---
PATIENT ARRIVED EARLIER FROM PROCEDURE TO RECOVERY, NOTED DRESSING PRESSURE TO DP, INTACT, NO NEW BLEEDING NOTED, DRESSING INTACT. FEMORAL SITE LEFT ALSO INTACT, NO BLEED, SOFT, NO HEMATOMA OR CONCERNS, GOOD PULSES PROX/DISTAL TO BOTH SITES. VSS, RESTING. RECENTLY AFTER 1 HOUR SUPINE, ELEVATING HOB IN INCREMENTS, DISCUSS WITH PATIENT, D/C PENDING OTHERWISE.
[2024-09-04 11:15] VITALS: BP 124/76
--- NOTE | 2024-09-04 11:22 | NUR ---
SAT PATIENT UP MORE, SITE REMAINS INTACT, NO CONCERNS, HAD SOME FOOD EARLIER, ATTEMPTING TO VOID AT PRESENT LAYING DOWN, HOB AT 60 PRESENTLY, VSS.
[2024-09-04 11:30] VITALS: BP 136/70
--- NOTE | 2024-09-04 12:22 | NUR ---
SITE INTACT, PATIENT DRESSED, REMOVED OUTER PRESSURE DRESSING TO RIGHT FOOT, INTACT SITE, DISCUSSED D/C PLAN REGARDING BOTH SITES AND D/C INSTRUCTIONS, DISCUSSED CALLING IF NOT HEARING FROM [facility] TODAY OR TOMORROW, AND CALLING TOMORROW OR SUNDAY. DISCUSSED HOLDING METFORMIN FOR 2 DAYS AND RESUMING ON 09/07 WELL CALLING OR RETURNING FOR ANY CONCERNS AND CALLING 02-23- IF EMERGENT ISSUES. IV D/C'D, INTACT CANNULA, TAKEN BY WHEELCHAIR AFTER DRESSED, SAT IN LOBBY AWAITING . LEFT AT 1215.
== END 2024-09-04 12:15 | disposition home or self-care (01) ==
LOC: MHTC 06:57
DX: E11.51 Type 2 diabetes mellitus with diabetic peripheral angiopathy without gangrene (principal); I70.223 Atherosclerosis of native arteries of extremities with rest pain, bilateral legs; I65.22 Occlusion and stenosis of left carotid artery; I10 Essential (primary) hypertension; I25.10 Atherosclerotic heart disease of native coronary artery without angina pectoris; E78.5 Hyperlipidemia, unspecified; Z87.891 Personal history of nicotine dependence; Z95.1 Presence of aortocoronary bypass graft; Z89.422 Acquired absence of other left toe(s); Z79.02 Long term (current) use of antithrombotics/antiplatelets; Z79.84 Long term (current) use of oral hypoglycemic drugs; Z79.01 Long term (current) use of anticoagulants; Z79.899 Other long term (current) drug therapy; Z86.73 Personal history of transient ischemic attack (TIA), and cerebral infarction without residual deficits
CPT/HCPCS: 76937; 85347; 99152; 99153; C1725; C1760; C1769; C1887; C1894; C2623; J1644; J2250; J3010; J7030; J7050; Q9967

== ENCOUNTER 2024-10-16 08:03 | Day surgery (SDC) | payer OTHER ==
[~2024-10-16] VITALS: Ht 175.3 cm; Wt 63.7 kg
[~2024-10-16 08:03] MED LIST changes: +Lactated Ringer's 1,000 ML IV ONE
[2024-10-16] MEDS ORDERED: propofoL 50 ML IV ONE (09:10)
[2024-10-16] MEDS ORDERED: Lactated Ringer's 1,000 ML IV ONE (09:17)
[2024-10-16] MEDS ORDERED: ePHEDrine Sulfate 50 MG/ML 1ML Injection ONE (09:48)
--- NOTE | 2024-10-16 09:53 | NUR ---
10/16/24 0953 Oswaldo Rodriguez 14ML NS USED DURING POLYPECTOMIES
[2024-10-16 10:39] VITALS: BP 144/82
== END 2024-10-16 10:31 | disposition home or self-care (01) ==
LOC: ORSCSDS 08:03
PROVIDERS: Surgery
PROC: 0DBL8ZX Excision of Transverse Colon, Via Natural or Artificial Opening Endoscopic, Diagnostic (ICD-10-PCS; principal; 2024-10-16 09:45)
PROC: 0DBK8ZX Excision of Ascending Colon, Via Natural or Artificial Opening Endoscopic, Diagnostic (ICD-10-PCS; principal; 2024-10-16 09:45)
DX: Z12.11 Encounter for screening for malignant neoplasm of colon (principal); D12.2 Benign neoplasm of ascending colon; D12.3 Benign neoplasm of transverse colon; K57.30 Diverticulosis of large intestine without perforation or abscess without bleeding; I10 Essential (primary) hypertension; E11.9 Type 2 diabetes mellitus without complications; Z86.73 Personal history of transient ischemic attack (TIA), and cerebral infarction without residual deficits; I73.9 Peripheral vascular disease, unspecified; I73.1 Thromboangiitis obliterans [Buerger's disease]; Z79.01 Long term (current) use of anticoagulants; Z79.02 Long term (current) use of antithrombotics/antiplatelets; Z79.899 Other long term (current) drug therapy; F17.210 Nicotine dependence, cigarettes, uncomplicated; E78.5 Hyperlipidemia, unspecified; Z79.84 Long term (current) use of oral hypoglycemic drugs
CPT/HCPCS: 82947; 88305; J2704; J7120